=== PATIENT | female | born 1960 | race Caucasian/White ===

== ENCOUNTER → 2016-08-20 | Outpatient (CLI) | payer OTHER, SELFPAY ==
[~2016-08-20] MED LIST: AMARYL4 MG PO; AUGMENTIN 875-1 EACH PO; HYDROCHLOROTHIA25 MG PO; LIPOZENE; LOPRESSOR25 MG PO; METFORMIN HCL1000 MG PO; PLAVIX75 MG PO; PRAVACHOL40 MG PO; PRINIVIL20 MG PO; ZITHROMAX250 MG PO
== END | disposition short-term general hospital (02) ==
LOC: CLCARD 09:59
DX: I10 Essential (primary) hypertension (principal); E11.9 Type 2 diabetes mellitus without complications; E78.5 Hyperlipidemia, unspecified; E66.01 Morbid (severe) obesity due to excess calories; Z79.899 Other long term (current) drug therapy

== ENCOUNTER → 2016-09-24 | Outpatient (CLI) | payer OTHER, SELFPAY | END | disposition short-term general hospital (02) | LOC: CLCARD 09:25 | DX: I25.10 Atherosclerotic heart disease of native coronary artery without angina pectoris (principal); I10 Essential (primary) hypertension; E66.9 Obesity, unspecified; E11.9 Type 2 diabetes mellitus without complications; E78.5 Hyperlipidemia, unspecified ==